=== PATIENT | female | born 1995 | race Caucasian/White ===

== ENCOUNTER 2018-05-19 11:24 | Emergency (ER) | payer OTHER ==
[2018-05-19 12:03] VITALS: BP 132/77
[2018-05-19] MEDS ORDERED: Ketorolac INJ* 60 MG/2 ML VIAL IM ONE (12:21)
--- NOTE | 2018-05-19 12:48 | UC ---
Headache HPI - HPI Summary HPI Summary: headache x 3 days pain is diffuse 6 out of 10 , no radiation worse with activities , better with rest, no nausea or vomiting, no photophobia, +dizziness - History Of Current Complaint Chief Complaint: UCGeneralIllness Stated Complaint: MIGRAINE,DIZZINESS [id number] Time Seen by Provider: 05/19/18 12:15 Hx Obtained From: Patient Hx Last Menstrual Period: 05/12/18 Onset/Duration: Gradual Onset, Lasting Days - 3, Still Present Onset Of Symptoms: Gradual Pain Intensity: 6 Timing: Constant Character: Throbbing Location of Headache: Diffuse Aggravating Factor(s): Position Change Allevating Factor(s): Rest Associated Signs And Symptoms: Negative: Dizziness, Seizure, Nausea, Vomiting, Sinus Pressure, Fever, Neck Pain, Neck Stiffness, Decreased LOC, Visual Changes - Allergies/Home Medications Allergies/Adverse Reactions: Allergies Allergy/AdvReac Type Severity Reaction Status Date / Time No Known Allergies Allergy Verified 05/19/18 12:00 Home Medications: Home Medications Bcp 1 tab QAM 05/19/18 [History Confirmed 05/19/18] PMH/Surg Hx/FS Hx/Imm Hx Previously Healthy: Yes - Surgical History Surgical History: Yes Surgery Procedure, Year, and Place: LEFT knee - Family History Known Family History: Negative: Diabetes - Social History Alcohol Use: None Substance Use Type: None Smoking Status (MU): Never Smoked Tobacco Review of Systems All Other Systems Reviewed And Are Negative: Yes Constitutional: Positive: Negative Skin: Positive: Negative Eyes: Positive: Negative ENT: Positive: Negative Respiratory: Positive: Negative Neurological: Positive: Headache, Weakness Is Patient Immunocompromised?: No Physical Exam Triage Information Reviewed: Yes Appearance: Well-Appearing, Well-Nourished, Pain Distress Vital Signs: Initial Vital Signs Temp 98.3 F 05/19/18 11:57 Pulse 93 05/19/18 11:57 Resp 14 05/19/18 11:57 BP 132/77 05/19/18 11:57 Pulse Ox 100 05/19/18 11:57 Vital Signs Reviewed: Yes Eye Exam: Normal Eyes: Positive: Conjunctiva Clear ENT: Positive: Normal ENT inspection, Hearing grossly normal, Pharynx normal Neck: Positive: Supple, Nontender, No Lymphadenopathy Respiratory: Positive: Chest non-tender, Lungs clear, Normal breath sounds, No respiratory distress Cardiovascular: Positive: RRR, No Murmur, Pulses Normal Neurological Exam: Normal Neurological: Positive: Alert UC Physical Exam Vital Signs On Initial Exam: Initial Vitals Temp Pulse Resp BP Pulse Ox 98.3 F 93 14 132/77 100 05/19/18 11:57 05/19/18 11:57 05/19/18 11:57 05/19/18 11:57 05/19/18 11:57 - Neurological Exam Neurological: Normal, Sensory/Motor Intact, Alert, Oriented to Person Place, Time, CN Intact II-III, Reflexes Intact, Normal Gait, Speech Normal Headache Course/Dx - Differential Dx/Diagnosis Provider Diagnosis: Headache, Vertigo Discharge - Sign-Out/Discharge Documenting (check all that apply): Patient Departure All imaging exams completed and their final reports reviewed: No Studies - Discharge Plan Condition: Stable Disposition: HOME Prescriptions: Meclizine TAB* [Antivert 12.5 TAB*] 25 mg PO TID PRN #15 tab PRN Reason: Dizziness Referrals: No Primary Care Phys,NOPCP [Primary Care Provider] - - Billing Disposition and Condition Condition: STABLE Disposition: Home
== END 2018-05-19 13:19 | disposition home or self-care (01) ==
LOC: UCCORT 11:24
DX: R51 Headache (principal); R42 Dizziness and giddiness
CPT/HCPCS: 96372; 99202; G0463; J1885